=== PATIENT | male | born 1960 | race Caucasian/White ===

== ENCOUNTER 2018-06-24 19:28 | Emergency (ER) | payer MEDICAID ==
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
[2018-06-24 19:35] VITALS: BP 112/89
[2018-06-24] MEDS ORDERED: HYDROCODONE/APAP 5/325 TAB PO ONE (20:28)
== END 2018-06-24 21:10 | disposition home or self-care (01) ==
LOC: EDUNIT#
PROC: 08QRXZZ Repair Left Lower Eyelid, External Approach (ICD-10-PCS; principal; 2018-06-24)
DX: S01.112A Laceration without foreign body of left eyelid and periocular area, initial encounter (principal); S00.12XA Contusion of left eyelid and periocular area, initial encounter; Y04.0XXA Assault by unarmed brawl or fight, initial encounter